=== PATIENT | female | born 1965 | race Caucasian/White ===

== ENCOUNTER 2016-09-07 18:08 | Emergency (ER) | payer BC ==
[~2016-09-07 18:08] MED LIST: ALDACTONE25 MG PO; B-121000 MCG PO; BUTALB-ACETAMI1 EAC1 PO; CIPRO500 MG PO; HYDROCHLOROTHIA25 MG PO; IMITREX100 MG PO; K-DUR20 MEQ PO; LASIX20 MG PO; LISINOPRIL20 MG PO; NORCO 5-325 TA1 EACH PO; OMEPRAZOLE20 MG PO; PHENERGAN25 M1 PO; PREMARIN0.45 MG PO; PROBIOTIC1 EAC2 PO; SOMA350 MG PO; TRIAMCINOLONE A80 G2 TOP; ZOFRAN ODT4 MG SL
== END 2016-09-07 22:15 | disposition home or self-care (01) ==
LOC: ER 18:08
DX: J36 Peritonsillar abscess (principal); H65.191 Other acute nonsuppurative otitis media, right ear; I10 Essential (primary) hypertension; G43.909 Migraine, unspecified, not intractable, without status migrainosus; F17.210 Nicotine dependence, cigarettes, uncomplicated; Z79.899 Other long term (current) drug therapy; Z88.0 Allergy status to penicillin
CPT/HCPCS: 36415; 96365; 96375; 96376; J0696; J1100; Q9967

== ENCOUNTER 2017-01-07 21:23 | Emergency (ER) | payer BC | END 2017-01-08 00:32 | disposition home or self-care (01) | LOC: ER 21:23 | DX: R51 Headache (principal); E87.6 Hypokalemia; I10 Essential (primary) hypertension; M50.30 Other cervical disc degeneration, unspecified cervical region; F17.210 Nicotine dependence, cigarettes, uncomplicated; Z98.890 Other specified postprocedural states; Z88.0 Allergy status to penicillin; Z88.2 Allergy status to sulfonamides; Z79.899 Other long term (current) drug therapy | CPT/HCPCS: 36415; 96361; 96365; 96375; J0780; J1200; J1885 ==